=== PATIENT | female | born 1965 | race Two or more races ===

== ENCOUNTER → 2020-10-03 | Emergency (ER) | payer SELFPAY ==
[~2020-10-03] VITALS: Ht 165.1 cm; Wt 72.6 kg
[2020-10-03 13:48] VITALS: BP 136/91
--- NOTE | 2020-10-03 16:00 | NUR ---
Pt states "Feeling better," NO obvious distress" Respirations even/unlabored. Given food/po fluids- ate 100%
--- NOTE | 2020-10-03 16:56 | NUR ---
Patient discharged to previous living condition ([facility]) in stable condition Declines jail placement. states "NO". Written and verbal after care instructions given. Patient verbalizes understanding of instruction.
--- NOTE | 2020-10-03 18:14 | NUR ---
UNABLE TO REMOVE THE PATIENT FROM [facility].
== END | disposition home or self-care (01) ==
LOC: ER 19:36
DX: R06.4 Hyperventilation (principal); Z59.0 Homelessness